=== PATIENT | female | born 1975 | race Two or more races ===

== ENCOUNTER 2023-01-13 05:10 | Day surgery (SDC) | payer OTHER ==
[~2023-01-13] VITALS: Ht 160 cm; Wt 108.0 kg
[~2023-01-13 05:10] MED LIST: DUPIXENT P300 MG/2 M
== END 2023-01-13 13:30 | disposition home or self-care (01) ==
LOC: CIR.AMB 05:10
PROVIDERS: ATTEND Otolaryngology
DX: C73 Malignant neoplasm of thyroid gland (principal); Z20.822 Contact with and (suspected) exposure to COVID-19; E66.9 Obesity, unspecified

== ENCOUNTER 2023-06-23 06:12 | Day surgery (SDC) | payer OTHER ==
[2023-06-18 10:13] LABS: PH,URINE 5.5 (5.0-8.0); URINE APPEARANCE Clear; URINE BILIRRUBIN Negative (NEGATIVE); URINE BLOOD Moderate; URINE COLOR Dark Yellow; URINE GLUCOSE Negative (NEGATIVE); URINE LEUKOCYTE Negative; URINE NITRATE Negative; URINE PROTEIN Trace (NEGATIVE)
[2023-06-18 10:15] LABS: URINE BACTERIA 1811.7 uL (0.0-1933); URINE EPITHELIAL CELLS 56.8 uL (0.0-38.8); URINE RBC 15.6 uL (0.0-20.8); URINE WBC 19.9 uL (0.0-23.2)
[2023-06-18 10:29] LABS: HEMATOCRIT 38.4 % (36.0-45.00); HEMOGLOBIN 13.3 g/dL (12.0-15.00); MEAN CELL VOLUME 82.8 fL (80.00-100.00); MEAN CORPUSCULAR HEMOGLOBIN 28.7 pg (27.00-32.0); MEAN CORPUSCULAR HGB CONC 34.7 g/dl (32.0-36.0); PLATELET COUNT 255 K/uL (150-450); RED BLOOD COUNT 4.64 M/uL (4.00-6.00); RED CELL DISTRIBUTION WIDTH 13.6 % (11.5-14.5)
[2023-06-18 10:48] LABS: ALBUMIN 3.5 gm/dL (3.4-5.0); BILIRUBIN TOTAL 0.53 mg/dL (0.3-1.2); CALCIUM 8.3 mg/dL (8.5-10.1); CREATININE SERUM 0.8 mg/dL (0.55-1.02); GFR 77.22; POTASSIUM 3.75 mEq/L (3.5-5.1); TOTAL PROTEIN 7.5 gm/dL (6.4-8.2)
[2023-06-18 10:50] LABS: INR 1.01; PARTIAL THROMBOPLASTIN TIME 31.3 SECONDS (22.0-34.0); PROTHROMBIN TIME 10.6 SECONDS (9.0-11.5)
== END 2023-06-23 18:05 | disposition home or self-care (01) ==
LOC: CIR.AMB 06:12
PROVIDERS: ATTEND Otolaryngology
DX: C73 Malignant neoplasm of thyroid gland (principal); Z20.822 Contact with and (suspected) exposure to COVID-19; Z91.040 Latex allergy status; I10 Essential (primary) hypertension